=== PATIENT | male | born 1960 ===

== ENCOUNTER 2022-05-13 09:39 | Inpatient (IN) | payer OTHER ==
[2022-05-13 12:20] LABS: Basophils # (Auto) 0.1 K/mm3 (0.0-0.1); Eosinophils # (Auto) 0.1 K/mm3 (0.0-0.4); Eosinophils % (Auto) 1.4 % (0.0-4.3); Hematocrit 41.1 % (35.5-45.6); Hemoglobin 13.5 gm/dl (11.8-15.2); Lymphocytes # (Auto) 1.7 K/mm3 (1.2-5.4); Lymphocytes % (Auto) 29.7 % (13.4-35.0); Mean Corpuscular HGB Conc 33 % (32-34); Mean Corpuscular Volume 90 fl (84-94); Monocytes # (Auto) 0.3 K/mm3 (0.0-0.8); Monocytes % (Auto) 4.6 % (0.0-7.3); Platelet Count 263 K/mm3 (140-440); Red Blood Count 4.58 M/mm3 (3.65-5.03); Red Cell Distribution Width 14.6 % (13.2-15.2)
[2022-05-13 12:44] LABS: Alanine Aminotransferase 30 units/L (7-56); Albumin 2.6 g/dL (3.9-5); BUN/Creatinine Ratio 14; Blood Urea Nitrogen 36 mg/dL (9-20); Calcium 8.4 mg/dL (8.4-10.2); Hemolysis Index 28
--- NOTE | 2022-05-14 09:38 | Electrocardiograph Report ---
[facility] Test Date: 2022-05-13 Test Time: 10:37:08 Pat Name: MERI EDWARDS Department: Room: Gender: M Emt/Dispatcher: CLAUDINE : 1960 Requested By: ED DOC Order Number: [id number] Reading MD: Rah Hernandez Measurements Intervals [place] Rate: 80 P: 56 [place]: 147 QRS: 29 QRSD: 69 T: 39 QT: 371 QTc: 428 Interpretive Statements Sinus rhythm Low voltage, extremity leads No previous ECG available for comparison Electronically Signed On 05-14-2022 9:38:32 EDT by Rah Hernandez
--- NOTE | 2022-05-14 10:52 | Emergency Department Report ---
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 At times patient endorsed feeling short of breath but patient currently denies any. Patient denies any other symptoms. Patient denies fever chill night sweat dizziness blurred vision lightheadedness headache tinnitus ear pain runny nose sore throat loss of taste loss smell chest pain palpitation short of breath cough abdominal pain nausea vomiting diarrhea constipation dysuria, myalgia, arthralgia, and heat or cold intolerance. Patient has been in the waiting area since yesterday 05/13 and was not seen until now on 05/14. Severity scale (0 -10): 0 - Related Data Allergies Allergy/AdvReac Type Severity Reaction Status Date / Time No Known Allergies Allergy Verified 05/13/22 10:39 ED Review of Systems ROS: Stated complaint: BODY SWOLLEN/PAIN IN LEGS Other details as noted in HPI Comment: All other systems reviewed and negative ED Past Medical Hx - Past Medical History Previous Medical History?: Yes Hx Diabetes: No (borderline) - Surgical History Past Surgical History?: No - Social History Smoking Status: Never Smoker ED Physical Exam - General Limitations: No Limitations General appearance: in no apparent distress - Head Head exam: Present: atraumatic, normocephalic, normal inspection - Eye Eye exam: Present: normal appearance, PERRL, EOMI Pupils: Present: normal accommodation - ENT ENT exam: Present: normal exam, mucous membranes moist - Neck Neck exam: Present: normal inspection, full ROM - Respiratory Respiratory exam: Present: normal lung sounds bilaterally - Cardiovascular Cardiovascular Exam: Present: regular rate, normal rhythm, normal heart sounds - GI/Abdominal GI/Abdominal exam: Present: soft - Extremities Exam Extremities exam: Present: normal inspection, full ROM, normal capillary refill - Back Exam Back exam: Present: normal inspection, full ROM - Neurological Exam Neurological exam: Present: alert, oriented X3, CN II-XII intact - Psychiatric Psychiatric exam: Present: normal affect, normal mood - Skin Skin exam: Present: warm, normal color ED Course Vital Signs 05/13/22 05/14/22 10:30 08:34 Temperature 98.9 F 97.7 F Pulse Rate 75 81 Respiratory 14 18 Rate Blood Pressure 133/98 Blood Pressure 169/99 [Right] O2 Sat by Pulse 98 98 Oximetry - Reevaluation(s) Reevaluation #1: 05/14/22 12:19 Patient case discussed with Dr. Ruggiero who kindly accepted the patient. ED Medical Decision Making - Lab Data Result diagrams: 05/13/22 11:51 05/14/22 11:17 Critical care attestation.: If time is entered above; I have spent that time in minutes in the direct care of this critically ill patient, excluding procedure time. ED Disposition Clinical Impression: Pulmonary nodule, right, Small pleural effusion, CHF (congestive heart failure), Anasarca, ANNA (acute kidney injury) Disposition: ADMITTED INPATIENT Is pt being admited?: No Does the pt Need Aspirin: No Condition: Stable Referrals: PRIMARY CARE, [Primary Care Provider] - 3-5 Days Time of Disposition: 12:21
--- NOTE | 2022-05-14 10:57 | XRay Report ---
CHEST 2 VIEWS INDICATION / CLINICAL INFORMATION: bnp high. COMPARISON: None available. FINDINGS: SUPPORT DEVICES: None. HEART / MEDIASTINUM: No significant abnormality. LUNGS / PLEURA: Small bilateral effusions. There is a nodular density projecting overlying the right lung just beneath the minor fissure measuring 1.1 cm No pneumothorax. ADDITIONAL FINDINGS: No significant additional findings. IMPRESSION: 1. Right lung nodule measures 1.1 cm. Follow-up CT chest is recommended. 2. Small effusions Signer Name: Ulises Field MD Signed: 05/14/2022 10:53 AM Workstation Name: [id number]
[2022-05-14 11:54] LABS: Albumin 2.5 g/dL (3.9-5); Calcium 8.5 mg/dL (8.4-10.2)
[2022-05-14] MEDS ORDERED: FUROSEMIDE 40 MG/4 ML INJ IV ONE (12:15)
[2022-05-14] MEDS ORDERED: ONDANSETRON 4 MG/2 ML INJ IV PRN (16:47)
[2022-05-14] MEDS ORDERED: ACETAMINOPHEN 325 MG TAB PO PRN (16:47)
[2022-05-14] MEDS ORDERED: MORPHINE 2 MG/1 ML INJ IV PRN (16:54)
[2022-05-14] MEDS ORDERED: oxyCODONE /ACETAMINOPHEN 5-325MG TAB PO PRN (16:54)
[2022-05-14] MEDS ORDERED: SPIRONOLACTONE 25 MG TAB PO ONE (17:01)
--- NOTE | 2022-05-14 17:08 | History and Physical Report ---
History of Present Illness Date of examination: 05/14/22 Date of admission: 05/14/2022 Chief complaint: Swelling of both the legs and arms for 1 week History of present illness: 61-year-old male with no significant past medical history comes in for swelling of both the legs and shortness of breath on exertion. No fever or chills. No cough. No night sweats. No joint pains except for right knee swelling and right knee pain. - Past Medical History Previous Medical History?: Yes --Diabetes: No (borderline) - Surgical History Past Surgical History?: No -- - Social History --Smoking Status: Never Smoker Review of Systems ROS: Constitutional no weight loss or weight gain no fever or chills HEENT no sore throat no post nasal drip no diplopia Neck no neck stiffness no lymph gland enlargement Chest and lungs no shortness of breath cough or wheezing CVS shortness of breath on exertion GI no nausea no vomiting no diarrhea Genitourinary system no dysuria no flank pain Musculoskeletal system swelling of both the lower extremities 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 no seizures Skin no rash no itching Psychiatric no depression no homicidal or suicidal tendencies Hematologic no lymphedema or bruising Endocrine no polydipsia no polyuria no cold intolerance no heat intolerance Medications and Allergies Allergies Allergy/AdvReac Type Severity Reaction Status Date / Time No Known Allergies Allergy Verified 05/14/22 16:57 Exam - Constitutional Vitals: Temp Pulse Resp BP Pulse Ox 97.7 F 81 18 169/99 98 05/14/22 08:34 05/14/22 08:34 05/14/22 08:34 05/14/22 08:34 05/14/22 08:34 General appearance: Present: mild distress, well-nourished - EENT Eyes: Present: PERRL ENT: hearing intact, clear oral mucosa - Neck Neck: Present: supple, normal ROM - Respiratory Respiratory effort: normal Respiratory: bilateral: CTA - Cardiovascular Heart rate: 78 Rhythm: regular Heart Sounds: Present: S1 & S2. Absent: rub, click - Extremities Extremities: pulses symmetrical, No edema Peripheral Pulses: within normal limits - Abdominal General gastrointestinal: Present: soft, non-tender, non-distended, normal bowel sounds Male genitourinary: Present: normal - Rectal Rectal Exam: deferred - Integumentary Integumentary: Present: clear, warm, dry - Musculoskeletal Musculoskeletal: gait normal, strength equal bilaterally - Psychiatric Psychiatric: appropriate mood/affect, intact judgment & insight - Neurologic Neurologic: CNII-XII intact, moves all extremities HEART Score - HEART Score History: Slightly suspicious Age: 45-65 Risk factors: 1-2 risk factors Troponin: Troponin T < 0.010 ng/mL (0.00-0.029) 05/14/22 11:17 Troponin: < normal limit - Critical Actions Critical Actions: 0-3 pts:0.9-1.7%risk of adverse cardiac event.Candidate for discharge Results - Labs CBC & Chem 7: 05/13/22 11:51 05/14/22 11:17 Labs: Laboratory Last Values WBC 5.8 K/mm3 (4.5-11.0) 05/13/22 11:51 RBC 4.58 M/mm3 (3.65-5.03) 05/13/22 11:51 Hgb 13.5 gm/dl (11.8-15.2) 05/13/22 11:51 Hct 41.1 % (35.5-45.6) 05/13/22 11:51 MCV 90 fl (84-94) 05/13/22 11:51 MCH 30 pg (28-32) 05/13/22 11:51 MCHC 33 % (32-34) 05/13/22 11:51 RDW 14.6 % (13.2-15.2) 05/13/22 11:51 Plt Count 263 K/mm3 (140-440) 05/13/22 11:51 Lymph % (Auto) 29.7 % (13.4-35.0) 05/13/22 11:51 [place] % (Auto) 4.6 % (0.0-7.3) 05/13/22 11:51 Eos % (Auto) 1.4 % (0.0-4.3) 05/13/22 11:51 Baso % (Auto) 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4 mg/dL (0.8-1.3) H 05/14/22 11:17 Estimated GFR 28 ml/min 05/14/22 11:17 BUN/Creatinine Ratio 14 % 05/14/22 11:17 Glucose 218 mg/dL (75-100) H 05/14/22 11:17 Calcium 8.5 mg/dL (8.4-10.2) 05/14/22 11:17 Magnesium 1.90 mg/dL (1.7-2.3) 05/14/22 11:17 Total Bilirubin 0.20 mg/dL (0.1-1.2) 05/14/22 11:17 AST 25 units/L (5-40) 05/14/22 11:17 ALT 24 units/L (7-56) 05/14/22 11:17 Alkaline Phosphatase 157 units/L (35-129) H 05/14/22 11:17 Troponin T < 0.010 ng/mL (0.00-0.029) 05/14/22 11:17 NT-Pro-B Natriuret Pep 3772 pg/mL (0-900) H 05/14/22 11:17 Total Protein 5.6 g/dL (6.3-8.2) L 05/14/22 11:17 Albumin 2.5 g/dL (3.9-5) L 05/14/22 11:17 Albumin/Globulin Ratio 0.8 % 05/14/22 11:17 BMP 05/14/22 11:17 Sodium 140 Potassium 5.5 H Chloride 109.5 H Carbon Dioxide 23 BUN 34 H Creatinine 2.4 H Glucose 218 H Calcium 8.5 Cardiac Enzymes 05/14/22 Range/Units 11:17 Troponin T < 0.010 (0.00-0.029) ng/mL Liver Function 05/14/22 Range/Units 11:17 Total Bilirubin 0.20 (0.1-1.2) mg/dL AST 25 (5-40) units/L ALT 24 (7-56) units/L Alkaline Phosphatase 157 H (35-129) units/L Albumin 2.5 L (3.9-5) g/dL - Imaging and Cardiology EKG: report reviewed (Sinus rhythm no acute ST-T wave changes) Chest x-ray: report reviewed Imaging and Cardiology: Chest x-ray Right lung nodule measures 1.1 cm Follow-up CT chest since recommended Small effusion Assessment and Plan Advance Directives: Yes (Full code) VTE prophylaxis?: Chemical Plan of care discussed with patient/family: Yes - Patient Problems (1) Acute exacerbation of CHF (congestive heart failure) Current Visit: Yes Status: Acute Qualifiers: Heart failure type: unspecified Qualified Code(s): I50.9 - Heart failure, unspecified Plan to address problem: Echocardiogram for ejection fraction and wall motion and valve function I's and O's Daily weights BNP is high 3655 (2) Hyperkalemia Current Visit: Yes Status: Acute Plan to address problem: Treated with Kayexalate and calcium gluconate and bicarbonate (3) ANNA (acute kidney injury) Current Visit: Yes Status: Acute Plan to address problem: Vasomotor nephropathy Possible underlying CKD Nephrology consult Patient on Lasix which may exacerbate volume depletion (4) T2DM (type 2 diabetes mellitus) Current Visit: Yes Status: Chronic 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 Patient acknowledged understanding with care plan. +30 minutes.
[2022-05-14] MEDS: HEPARIN 5,000 UNIT/1 ML VIAL SUB-Q SCH (22:21)
[2022-05-14] MEDS: FUROSEMIDE 40 MG/4 ML INJ IV SCH (22:21)
[2022-05-14] MEDS: carvediloL 12.5 MG TAB PO SCH (22:21)
[2022-05-14] MEDS: FAMOTIDINE 20 MG TAB PO SCH (22:22)
[2022-05-15] MEDS: hydrALAZINE 20 MG/1 ML INJ IV PRN (04:33)
[2022-05-15] MEDS: FUROSEMIDE 40 MG/4 ML INJ IV SCH ×2 (06:14→17:33)
[2022-05-15 08:16] LABS: Basophils % (Auto) 0.2 % (0.0-1.8); Eosinophils # (Auto) 0.2 K/mm3 (0.0-0.4); Eosinophils % (Auto) 2.7 % (0.0-4.3); Hematocrit 39.4 % (35.5-45.6); Lymphocytes # (Auto) 1.7 K/mm3 (1.2-5.4); Lymphocytes % (Auto) 30.2 % (13.4-35.0); Mean Corpuscular HGB Conc 33 % (32-34); Mean Corpuscular Volume 89 fl (84-94); Monocytes # (Auto) 0.3 K/mm3 (0.0-0.8); Monocytes % (Auto) 4.5 % (0.0-7.3); Platelet Count 281 K/mm3 (140-440); Red Blood Count 4.43 M/mm3 (3.65-5.03); Red Cell Distribution Width 14.5 % (13.2-15.2)
[2022-05-15 08:49] LABS: Alanine Aminotransferase 20 units/L (7-56); BUN/Creatinine Ratio 15; Blood Urea Nitrogen 34 mg/dL (9-20); Calcium 8.1 mg/dL (8.4-10.2); Hemolysis Index 23
--- NOTE | 2022-05-15 09:06 | Electrocardiograph Report ---
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
[2022-05-15] MEDS: carvediloL 12.5 MG TAB PO SCH ×2 (11:10→21:46)
[2022-05-15] MEDS: FAMOTIDINE 20 MG TAB PO SCH (11:10)
[2022-05-15] MEDS: HEPARIN 5,000 UNIT/1 ML VIAL SUB-Q SCH ×2 (11:11→21:47)
--- NOTE | 2022-05-15 13:52 | Consultation ---
History of Present Illness Consult reason: congestive heart failure History of present illness: Patient 61-year-old male who reports no past medical history who came to the ED with a complaint of swelling on his lower extremities x4 months. Patient states he has had this swelling for several months however he was unable to clarify why he decided to come to the ED. Patient reports that he does not follow with any doctors. In the ED patient was found to have elevated creatinine and elevated BNP. CXR showed small pleural effusions and pulmonary nodule. At time of interview patient denies chest pain, shortness of breath, orthopnea or dyspnea on exertion. Patient is previously known to our practice. Cardiology is consulted for CHF Past History Past Medical History: No medical history Past Surgical History: No surgical history Social history: no significant social history Family history: no significant family history Medications and Allergies Allergies Allergy/AdvReac Type Severity Reaction Status Date / Time No Known Allergies Allergy Verified 05/14/22 16:57 Active Meds: Active Medications Acetaminophen (Acetaminophen 325 Mg Tab) 650 mg PO Q4H PRN PRN Reason: Pain MILD(1-3)/Fever >100.5/KEARNS Carvedilol (Carvedilol 12.5 Mg Tab) 12.5 mg PO BID [facility] Last Admin: 05/15/22 11:10 Dose: 12.5 mg Famotidine (Famotidine 10 Mg Tab) 10 mg PO BID [facility] Furosemide (Furosemide 40 Mg/4 Ml Inj) 40 mg IV 0600,1800 [facility] Last Admin: 05/15/22 06:14 Dose: 40 mg Heparin Sodium (Porcine) (Heparin 5,000 Unit/1 Ml Vial) 5,000 unit SUB-Q Q12HR [facility] Last Admin: 05/15/22 11:11 Dose: 5,000 unit Hydralazine HCl (Hydralazine 20 Mg/1 Ml Inj) 10 mg IV Q4H PRN PRN Reason: Blood Pressure Last Admin: 05/15/22 04:33 Dose: 10 mg Morphine Sulfate (Morphine 2 Mg/1 Ml Inj) 2 mg IV Q4H PRN PRN Reason: Pain, Moderate (4-6) Ondansetron HCl (Ondansetron 4 Mg/2 Ml Inj) 4 mg IV Q8H PRN PRN Reason: Nausea And Vomiting Oxycodone/Acetaminophen (Oxycodone /Acetaminophen 5-325mg Tab) 1 tab PO Q6H PRN PRN Reason: Pain, Moderate (4-6) Sodium Chloride (Sodium Chloride 0.9% 10 Ml Flush Syringe) 10 ml IV BID [facility] Last Admin: 05/15/22 11:11 Dose: 10 ml Sodium Chloride (Sodium Chloride 0.9% 10 Ml Flush Syringe) 10 ml IV PRN PRN PRN Reason: LINE FLUSH Review of Systems Constitutional: no weight loss, no weight gain Ears, nose, mouth and throat: no sinus pressure, no sinus pain Cardiovascular: edema, no chest pain, no orthopnea, no shortness of breath, no dyspnea on exertion Respiratory: no hemoptysis, no dyspnea on exertion Gastrointestinal: no abdominal pain, no nausea, no vomiting Musculoskeletal: no neck stiffness, no neck pain Integumentary: no rash, no pruritis, no redness Neurological: no head injury, no transient paralysis Psychiatric: no anxiety, no memory loss Endocrine: no cold intolerance, no heat intolerance Physical Examination Vital Signs Temp Pulse Resp BP Pulse Ox 98.9 F 75 14 133/98 98 05/13/22 10:30 05/13/22 10:30 05/13/22 10:30 05/13/22 10:30 05/13/22 10:30 General appearance: no acute distress HEENT: Positive: PERRL Neck: Positive: trachea midline Cardiac: Positive: Reg Rate and Rhythm Lungs: Positive: Normal Breath Sounds Neuro: Positive: Grossly Intact Abdomen: Positive: Soft Skin: Negative: Rash, Suspicious Lesions, Ulceration Extremities: Present: upper extr. pulses, edema (L>R) Results 05/15/22 05:11 05/15/22 05:11 Cardiac Enzymes 05/15/22 Range/Units 05:11 AST 22 (5-40) units/L CBC 05/15/22 Range/Units 05:11 WBC 5.6 (4.5-11.0) K/mm3 RBC 4.43 (3.65-5.03) M/mm3 Hgb 13.0 (11.8-15.2) gm/dl Hct 39.4 (35.5-45.6) % Plt Count 281 (140-440) K/mm3 Lymph # (Auto) 1.7 (1.2-5.4) K/mm3 [place] # (Auto) 0.3 (0.0-0.8) K/mm3 Eos # (Auto) 0.2 (0.0-0.4) K/mm3 Baso # (Auto) 0.0 (0.0-0.1) K/mm3 Comprehensive Metabolic Panel 05/15/22 Range/Units 05:11 Sodium 139 (137-145) mmol/L Potassium 4.3 D (3.6-5.0) mmol/L Chloride 113.2 H (98-107) mmol/L Carbon Dioxide 18 L (22-30) mmol/L BUN 34 H (9-20) mg/dL Creatinine 2.3 H (0.8-1.3) mg/dL Glucose 156 H (75-100) mg/dL Calcium 8.1 L (8.4-10.2) mg/dL AST 22 (5-40) units/L ALT 20 (7-56) units/L Alkaline Phosphatase 147 H (35-129) units/L Total Protein 4.8 L (6.3-8.2) g/dL Albumin 2.0 L (3.9-5) g/dL - Imaging and Cardiology Echo: pending EKG interpretations - Telemetry EKG Rhythm: Sinus Rhythm - EKG Sinus rhythms and dysrhythmias: sinus rhythm Assessment and Plan Patient 61-year-old male who reports no past medical history who came to the ED with a complaint of swelling on his lower extremities x4 months. Acute CHF ANNA-nephrology following Hypertension Diabetes Hyperkalemia Pulmonary nodule Plan: EKG shows sinus rhythm 70 with no acute ischemic changes. Troponins negative x3. Patient denies any complaint of chest pain. AMI ruled out BNP noted to be elevated and patient does have bilateral lower extremity edema. Agree with Lasix for diuresis if okay with nephrology due to patient renal function Strict I&O's, daily weights, repeat BMP in a.m. No KARMA or ARB due to renal function Patient currently on carvedilol 12.5 mg p.o. twice daily Echo pending Per CXR primary team may wish to consider CT chest for pulmonary nodule Patient seen in conjunction with Dr. Hernandez who agrees with this plan of care - Patient Problems (1) Pulmonary nodule, right Current Visit: Yes Status: Acute (2) Small pleural effusion Current Visit: Yes Status: Acute (3) CHF (congestive heart failure) Current Visit: Yes Status: Acute (4) ANNA (acute kidney injury) Current Visit: Yes Status: Acute (5) Acute exacerbation of CHF (congestive heart failure) Current Visit: Yes Status: Acute Qualifiers: Heart failure type: unspecified Qualified Code(s): I50.9 - Heart failure, unspecified (6) Hyperkalemia Current Visit: Yes Status: Acute (7) ANNA (acute kidney injury) Current Visit: Yes Status: Acute (8) T2DM (type 2 diabetes mellitus) Current Visit: Yes Status: Chronic Qualifiers: Diabetes 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
--- NOTE | 2022-05-15 15:14 | Consultation ---
History of Present Illness - Reason for Consult Consult date: 05/15/22 acute renal failure - History of Present Illness RFC: ANNA, Unknown CKD HPI: 61 year old M admitted with leg edema and SHOB. He denies fever, chills, cough or night sweats. His Cr is high. His CXR is clear. ROS: As in HPI otherwise 12 point review of systems -ve - Past Medical History Previous Medical History?: Yes --Diabetes: No (borderline) - Surgical History Past Surgical History?: No -- - Social History --Smoking Status: Never Smoker Past History Past Medical History: No medical history Past Surgical History: No surgical history Social history: no significant social history Family history: no significant family history Medications and Allergies Allergies Allergy/AdvReac Type Severity Reaction Status Date / Time No Known Allergies Allergy Verified 05/14/22 16:57 Active Meds: Active Medications Acetaminophen (Acetaminophen 325 Mg Tab) 650 mg PO Q4H PRN PRN Reason: Pain MILD(1-3)/Fever >100.5/KEARNS Carvedilol (Carvedilol 12.5 Mg Tab) 12.5 mg PO BID [facility] Last Admin: 05/15/22 11:10 Dose: 12.5 mg Famotidine (Famotidine 10 Mg Tab) 10 mg PO BID [facility] Furosemide (Furosemide 40 Mg/4 Ml Inj) 40 mg IV 0600,1800 [facility] Last Admin: 05/15/22 06:14 Dose: 40 mg Heparin Sodium (Porcine) (Heparin 5,000 Unit/1 Ml Vial) 5,000 unit SUB-Q Q12HR [facility] Last Admin: 05/15/22 11:11 Dose: 5,000 unit Hydralazine HCl (Hydralazine 20 Mg/1 Ml Inj) 10 mg IV Q4H PRN PRN Reason: Blood Pressure Last Admin: 05/15/22 04:33 Dose: 10 mg Morphine Sulfate (Morphine 2 Mg/1 Ml Inj) 2 mg IV Q4H PRN PRN Reason: Pain, Moderate (4-6) Ondansetron HCl (Ondansetron 4 Mg/2 Ml Inj) 4 mg IV Q8H PRN PRN Reason: Nausea And Vomiting Oxycodone/Acetaminophen (Oxycodone /Acetaminophen 5-325mg Tab) 1 tab PO Q6H PRN PRN Reason: Pain, Moderate (4-6) Sodium Chloride (Sodium Chloride 0.9% 10 Ml Flush Syringe) 10 ml IV BID [facility] Last Admin: 05/15/22 11:11 Dose: 10 ml Sodium Chloride (Sodium Chloride 0.9% 10 Ml Flush Syringe) 10 ml IV PRN PRN PRN Reason: LINE FLUSH Exam - Vital Signs Vital signs: Vital Signs Temp Pulse Resp BP Pulse Ox 98.9 F 75 14 133/98 98 05/13/22 10:30 05/13/22 10:30 05/13/22 10:30 05/13/22 10:30 05/13/22 10:30 - Physical Exam Narrative exam: General appearance: Present: mild distress, well-nourished - EENT Eyes: Present: PERRL ENT: hearing intact, clear oral mucosa - Neck Neck: Present: supple, normal ROM - Respiratory Respiratory effort: normal Respiratory: bilateral: CTA - Cardiovascular Heart rate: 78 Rhythm: regular Heart Sounds: Present: S1 & S2. Absent: rub, click - Extremities Extremities: pulses symmetrical, No edema Peripheral Pulses: within normal limits - Abdominal General gastrointestinal: Present: soft, non-tender, non-distended, normal bowel sounds Male genitourinary: Present: normal - Rectal Rectal Exam: deferred - Integumentary Integumentary: Present: clear, warm, dry - Musculoskeletal Musculoskeletal: gait normal, strength equal bilaterally - Psychiatric Psychiatric: appropriate mood/affect, intact judgment & insight - Neurologic Neurologic: CNII-XII intact, moves all extremities Results - Lab Results 05/15/22 05:11 05/15/22 05:11 Most recent lab results Calcium 8.1 mg/dL (8.4-10.2) L 05/15/22 05:11 Magnesium 1.90 mg/dL (1.7-2.3) 05/14/22 11:17 Assessment and Plan Acute Kidney injury, Possible CKD Metabolic acidosis Hyperkalemia Acute CHF exacerbation DM2 HTN -May have CKD -Check Urine studies, CK level -Check Renal US -Low K diet -Start bicarb tabs for acidosis -On lasix for CHF, CXR looks clear, can f/u TTE -Keep Nephrotic syndrome in mind, check for proteinuria Dashawn Gaspar MD [phone]
[2022-05-15 19:51] LABS: Bilirubin,Urine Negative (Negative); Blood,Urine 1+ (Negative); Color,Urine Yellow (Yellow)
[2022-05-15 19:52] LABS: Protein,Urine 300 mg/dL mg/dL (Negative)
[2022-05-15 20:31] LABS: Creatinine,Urine 36.2 mg/dL (0.1-20.0)
[2022-05-15 20:42] LABS: Protein/Creatinine Ratio,Urine 14.09
[2022-05-15] MEDS: SODIUM BICARBONATE 650 MG TAB PO SCH (21:47)
[2022-05-15] MEDS: FAMOTIDINE 10 MG TAB PO SCH (21:47)
[2022-05-16 04:56] LABS: Calcium 7.7 mg/dL (8.4-10.2); Chol/HDL Ratio 3.08 %
[2022-05-16] MEDS: FUROSEMIDE 40 MG/4 ML INJ IV SCH ×2 (06:07→18:10)
--- NOTE | 2022-05-16 08:41 | Progress Note ---
Assessment and Plan - Patient Problems (1) Acute exacerbation of CHF (congestive heart failure) Current Visit: Yes Status: Acute Qualifiers: Heart failure type: unspecified Qualified Code(s): I50.9 - Heart failure, unspecified Plan to address problem: Echocardiogram showed ejection fraction of 50 to 55% Decreased left ventricular systolic function Daily intake output and daily weights Cardiology consult appreciated (2) Hyperkalemia Current Visit: Yes Status: Acute Plan to address problem: Corrected (3) ANNA (acute kidney injury) Current Visit: Yes Status: Acute Plan to address problem: Vasomotor nephropathy Possible underlying CKD Nephrology consult Patient on Lasix which may exacerbate volume depletion (4) T2DM (type 2 diabetes mellitus) Current Visit: Yes Status: Chronic Qualifiers: 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 Patient acknowledged understanding with care plan. +30 minutes. Subjective Date of service: 05/15/22 Principal diagnosis: ANNA, CHF Interval history: History of present illness: 61-year-old male with no significant past medical history comes in for swelling of both the legs and shortness of breath on exertion. No fever or chills. No cough. No night sweats. No joint pains except for right knee swelling and right knee pain. 05/15/2022 Shortness of breath is better Pedal edema is better Creatinine slightly improved creatinine improved from 36/2.5-34/2.3 Echocardiogram showed ejection fraction of 50 to 55% Objective - Constitutional Vitals: Vital Signs - 12hr 05/15/22 05/16/22 05/16/22 22:00 00:03 03:12 Temperature 98.4 F 98.1 F Pulse Rate 75 72 Respiratory 16 16 Rate Blood Pressure 151/78 146/77 O2 Sat by Pulse 97 98 99 Oximetry General appearance: Present: no acute distress, well-nourished - EENT Eyes: PERRL, EOM intact ENT: hearing intact, clear oral mucosa Ears: bilateral: normal - Neck Neck: supple, normal ROM - Respiratory Respiratory effort: normal Respiratory: bilateral: CTA - Breasts Breasts: normal - Cardiovascular Heart rate: 78 Rhythm: regular Heart Sounds: Present: S1 & S2. Absent: gallop, rub Extremities: pulses intact, No edema, normal color, Full ROM - Gastrointestinal General gastrointestinal: Present: soft, non-tender, non-distended, normal bowel sounds - Genitourinary Male genitourinary: normal - Integumentary Integumentary: clear, warm, dry - Musculoskeletal Musculoskeletal: 1, strength equal bilaterally - Neurologic Neurologic: moves all extremities - Psychiatric Psychiatric: memory intact, appropriate mood/affect, intact judgment & insight - Labs CBC & Chem 7: 05/15/22 05:11 05/19/22 09:22 Labs: Abnormal lab results 05/15/22 05/15/22 05/15/22 Range/Units 05:11 15:57 18:41 Chloride 113.2 H (98-107) mmol/L Carbon Dioxide 18 L (22-30) mmol/L BUN 34 H (9-20) mg/dL Creatinine 2.3 H (0.8-1.3) mg/dL Glucose 156 H (75-100) mg/dL POC Glucose (70-105) mg/dL Calcium 8.1 L (8.4-10.2) mg/dL Alkaline Phosphatase 147 H (35-129) units/L Total Creatine Kinase 176 H (55-170) units/L Total Protein 4.8 L (6.3-8.2) g/dL Albumin 2.0 L (3.9-5) g/dL Triglycerides (2-149) mg/dL Cholesterol (50-199) mg/dL LDL Cholesterol Direct (50-130) mg/dL HDL Cholesterol (40-59) mg/dL Urine WBC (Auto) 30.0 H (0.0-6.0) /HPF Urine Creatinine (0.1-20.0) mg/dL Urine Total Protein (5-11.8) mg/dL 05/15/22 05/15/22 05/16/22 Range/Units 18:41 22:00 03:56 Chloride 110.8 H (98-107) mmol/L Carbon Dioxide 21 L (22-30) mmol/L BUN 37 H (9-20) mg/dL Creatinine 2.6 H (0.8-1.3) mg/dL Glucose 231 H (75-100) mg/dL POC Glucose 190 H (70-105) mg/dL Calcium 7.7 L (8.4-10.2) mg/dL Alkaline Phosphatase (35-129) units/L Total Creatine Kinase (55-170) units/L Total Protein (6.3-8.2) g/dL Albumin (3.9-5) g/dL Triglycerides 175 H (2-149) mg/dL Cholesterol 228 H (50-199) mg/dL LDL Cholesterol Direct 138 H (50-130) mg/dL HDL Cholesterol 74 H (40-59) mg/dL Urine WBC (Auto) (0.0-6.0) /HPF Urine Creatinine 36.2 H (0.1-20.0) mg/dL Urine Total Protein 510 H (5-11.8) mg/dL HEART Score - HEART Score Age: 45-65 Risk factors: 1-2 risk factors Troponin: Troponin T < 0.010 ng/mL (0.00-0.029) 05/14/22 11:17 Troponin: < normal limit - Critical Actions Critical Actions: 0-3 pts:0.9-1.7%risk of adverse cardiac event.Candidate for discharge
[2022-05-16] MEDS ORDERED: carvediloL 12.5 MG TAB PO SCH (10:49)
--- NOTE | 2022-05-16 11:09 | Ultrasound Report ---
ULTRASOUND RENAL INDICATION / CLINICAL INFORMATION: ana. COMPARISON: None available. FINDINGS: RIGHT KIDNEY: Length = 10.2 cm. - Echogenicity: Mildly echogenic. - Parenchymal Thickness: Normal. - Hydronephrosis: None. - Cyst / Mass: None. - Stones: None seen. LEFT KIDNEY: Length = 10.4 cm. - Echogenicity: Mildly echogenic. - Parenchymal Thickness: Normal. - Hydronephrosis: None. - Cyst / Mass: None. - Stones: None seen. URINARY BLADDER: Distended. No significant abnormality. FREE FLUID: Trace perinephric fluid bilaterally. ADDITIONAL FINDINGS: Bilateral pleural effusions, right greater than left. Diffusely echogenic appear ance of the liver, most commonly seen with steatosis. IMPRESSION: 1. No acute sonographic abnormality. 2. Findings suggestive of medical renal disease with trace perinephric fluid noted bilaterally. 3. Incidental findings, as described above. Scribed by: Peri Segal RDMS, LAUREL, SHERI Scribed: 05/16/2022 9:24 AM I have reviewed the images, agree with this report, and edited this report as needed. Signer Name: Rob Duran MD Signed: 05/16/2022 11:04 AM Workstation Name: [email or web address]
--- NOTE | 2022-05-16 12:21 | Progress Note ---
Assessment and Plan Patient 61-year-old male who reports no past medical history who came to the ED with a complaint of swelling on his lower extremities x4 months. Acute CHF ANNA-nephrology following Hypertension Diabetes Hyperkalemia Pulmonary nodule Echo 05/14/2022-EF 50 to 55%. Mild diastolic dysfunction is present impaired relaxation pattern. Right ventricular systolic function is normal. No pericardial effusion Plan: Patient reports good urine output and lower extremity edema has improved Patient has normal echo suspect lower extremity edema related to renal function Patient creatinine noted to increase. Will defer to nephrology for volume management Strict I&O's, daily weights, repeat BMP in a.m. No KARMA or ARB due to renal function Patient is hypertensive will increase to carvedilol 25 mg p.o. twice daily Will initiate atorvastatin 40 mg p.o. daily nightly due to high cholesterol Per CXR primary team may wish to consider CT chest for pulmonary nodule Patient seen in conjunction with Dr. Hernandez who agrees with this plan of care - Patient Problems (1) Pulmonary nodule, right Current Visit: Yes Status: Acute (2) Small pleural effusion Current Visit: Yes Status: Acute (3) CHF (congestive heart failure) Current Visit: Yes Status: Acute (4) ANNA (acute kidney injury) Current Visit: Yes Status: Acute (5) Acute exacerbation of CHF (congestive heart failure) Current Visit: Yes Status: Acute Qualifiers: Heart failure type: unspecified Qualified Code(s): I50.9 - Heart failure, unspecified (6) Hyperkalemia Current Visit: Yes Status: Acute (7) ANNA (acute kidney injury) Current Visit: Yes Status: Acute (8) T2DM (type 2 diabetes mellitus) Current Visit: Yes Status: Chronic Qualifiers: 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 Subjective Date of service: 05/16/22 Principal diagnosis: Volume overload Interval history: Patient resting in bed in no acute distress Sinus 70s on monitor with no events Objective Vital Signs Temp Pulse Resp BP Pulse Ox 05/16/22 10:00 98 05/16/22 03:12 98.1 F 72 16 146/77 99 05/16/22 00:03 98.4 F 75 16 151/78 98 05/15/22 22:00 97 05/15/22 20:34 98.1 F 65 16 174/90 99 05/15/22 15:10 98.4 F 66 18 175/92 98 05/15/22 14:00 72 97 - Physical Examination General: No Apparent Distress HEENT: Positive: PERRL Neck: Positive: trachea midline Cardiac: Positive: Reg Rate and Rhythm Lungs: Positive: Normal Breath Sounds Neuro: Positive: Grossly Intact Abdomen: Positive: Soft Skin: Negative: Rash, Suspicious Lesions, Ulceration Extremities: Present: upper extr. pulses, edema (L>R) - Labs and Meds Lipids 05/16/22 Range/Units 03:56 Triglycerides 175 H (2-149) mg/dL Cholesterol 228 H (50-199) mg/dL HDL Cholesterol 74 H (40-59) mg/dL Cholesterol/HDL Ratio 3.08 % Comprehensive Metabolic Panel 05/16/22 Range/Units 03:56 Sodium 140 (137-145) mmol/L Potassium 4.1 (3.6-5.0) mmol/L Chloride 110.8 H (98-107) mmol/L Carbon Dioxide 21 L (22-30) mmol/L BUN 37 H (9-20) mg/dL Creatinine 2.6 H (0.8-1.3) mg/dL Glucose 231 H (75-100) mg/dL Calcium 7.7 L (8.4-10.2) mg/dL - Imaging and Cardiology EKG: report reviewed (Sinus rhythm no acute ST-T wave changes) Echo: report reviewed - Telemetry EKG Rhythm: Sinus Rhythm - EKG Sinus rhythms and dysrhythmias: sinus rhythm
[2022-05-16] MEDS: SODIUM BICARBONATE 650 MG TAB PO SCH ×3 (12:37→20:00)
[2022-05-16] MEDS: HEPARIN 5,000 UNIT/1 ML VIAL SUB-Q SCH ×2 (12:37→22:25)
[2022-05-16] MEDS: FAMOTIDINE 10 MG TAB PO SCH ×2 (12:37→22:24)
[2022-05-16] MEDS: carvediloL 25 MG TAB PO SCH ×2 (12:40→22:24)
[2022-05-16] MEDS: carvediloL 12.5 MG TAB PO SCH (12:40)
[2022-05-16 13:18] LABS: Hepatitis B Surface Antigen Non-Reactive (Negative); Hepatitis C Virus Antibody Non-Reactive (NonReactive)
--- NOTE | 2022-05-16 18:54 | Progress Note ---
Assessment and Plan Acute Kidney injury, Possible CKD Metabolic acidosis Hyperkalemia Acute CHF exacerbation DM2 HTN -May have CKD -Has nephrotic syndrome, check secondary nephrotic w/u. -Check Renal US -Low K diet -Started bicarb tabs for acidosis -On lasix for CHF, CXR looks clear, TTE -ve for CHF, dec lasix. Dashawn Gaspar MD [phone] Subjective Date of service: 05/16/22 Principal diagnosis: Volume overload Interval history: making urine. Objective - Exam Narrative Exam: General appearance: Present: mild distress, well-nourished - EENT Eyes: Present: PERRL ENT: hearing intact, clear oral mucosa - Neck Neck: Present: supple, normal ROM - Respiratory Respiratory effort: normal Respiratory: bilateral: CTA - Cardiovascular Heart rate: 78 Rhythm: regular Heart Sounds: Present: S1 & S2. Absent: rub, click - Extremities Extremities: pulses symmetrical, No edema Peripheral Pulses: within normal limits - Abdominal General gastrointestinal: Present: soft, non-tender, non-distended, normal bowel sounds Male genitourinary: Present: normal - Rectal Rectal Exam: deferred - Integumentary Integumentary: Present: clear, warm, dry - Musculoskeletal Musculoskeletal: gait normal, strength equal bilaterally - Psychiatric Psychiatric: appropriate mood/affect, intact judgment & insight - Neurologic Neurologic: CNII-XII intact, moves all extremities - Vital Signs Vital signs: Vital Signs - 12hr 05/16/22 05/16/22 05/16/22 08:02 10:00 12:12 Temperature 98.7 F 98.5 F Pulse Rate 62 63 Respiratory 18 18 Rate Blood Pressure 173/89 187/83 O2 Sat by Pulse 99 98 98 Oximetry 05/16/22 05/16/22 14:00 16:41 Temperature 98.5 F Pulse Rate 63 62 Respiratory 18 Rate Blood Pressure 177/99 O2 Sat by Pulse 99 Oximetry - Lab 05/15/22 05:11 05/16/22 03:56 Most recent lab results Calcium 7.7 mg/dL (8.4-10.2) L 05/16/22 03:56 Magnesium 1.90 mg/dL (1.7-2.3) 05/14/22 11:17 Urine Creatinine 36.2 mg/dL (0.1-20.0) H 05/15/22 18:41 Urine Sodium 104 mmol/L 05/15/22 18:41 Urine Total Protein 510 mg/dL (5-11.8) H 05/15/22 18:41 Medications & Allergies - Medications Allergies/Adverse Reactions: Allergies No Known Allergies Allergy (Verified 05/14/22 16:57) Home Medications: Home Medications Medication Instructions Recorded Confirmed Last Taken Type amLODIPine [Norvasc] 10 mg PO DAILY 05/15/22 05/15/22 Unknown History Active Medications: Generic Name Dose Route Start Last Admin Trade Name Freq PRN Reason Stop Dose Admin Acetaminophen 650 mg 05/14/22 16:47 Acetaminophen 325 Mg Tab PO Q4H PRN Pain MILD(1-3)/Fever >100.5/KEARNS Atorvastatin Calcium 40 mg 05/16/22 22:00 Atorvastatin 40 Mg Tab PO QHS REENA Carvedilol 25 mg 05/16/22 12:00 05/16/22 12:40 Carvedilol 25 Mg Tab PO 25 mg Q12HR REENA Administration Famotidine 10 mg 05/15/22 22:00 05/16/22 12:37 Famotidine 10 Mg Tab PO 10 mg BID REENA Administration Furosemide 20 mg 05/17/22 10:00 Furosemide 20 Mg Tab PO QDAY REENA Heparin Sodium (Porcine) 5,000 unit 05/14/22 22:00 05/16/22 12:37 Heparin 5,000 Unit/1 Ml Vial SUB-Q 5,000 unit Q12HR REENA Administration Hydralazine HCl 10 mg 05/15/22 04:15 05/15/22 04:33 Hydralazine 20 Mg/1 Ml Inj IV 10 mg Q4H PRN Administration Blood Pressure Morphine Sulfate 2 mg 05/14/22 16:54 Morphine 2 Mg/1 Ml Inj IV Q4H PRN Pain, Moderate (4-6) Ondansetron HCl 4 mg 05/14/22 16:47 Ondansetron 4 Mg/2 Ml Inj IV Q8H PRN Nausea And Vomiting Oxycodone/Acetaminophen 1 tab 05/14/22 16:54 Oxycodone /Acetaminophen 5-325mg Tab PO Q6H PRN Pain, Moderate (4-6) Sodium Bicarbonate 650 mg 05/15/22 20:00 05/16/22 15:01 Sodium Bicarbonate 650 Mg Tab PO 650 mg TID REENA Administration Sodium Chloride 10 ml 05/14/22 22:00 05/16/22 12:37 Sodium Chloride 0.9% 10 Ml Flush Syringe IV 10 ml BID REENA Administration Sodium Chloride 10 ml 05/14/22 16:47 Sodium Chloride 0.9% 10 Ml Flush Syringe IV PRN PRN LINE FLUSH
[2022-05-17 06:21] LABS: Calcium 7.5 mg/dL (8.4-10.2)
--- NOTE | 2022-05-17 09:42 | Progress Note ---
Assessment and Plan Acute Kidney injury, nephrotic syndrome, possible CKD Non Anion Gap Metabolic acidosis Hyperkalemia Acute CHF exacerbation DM2 HTN Plan: -Renal function reviewed, SCr level was 2.7 today, yesterday's SCr level was 2.6 -Pt may have underlying CKD -Calculated protein to cr ratio was 14 g, nephrotic range proteinuria, pt has nephrotic syndrome, check secondary GN work up -So far HIV, Hepatitis panel -> negative -Renal US suggestive of medical renal disease with trace perinephric fluid noted, no hydronephrosis -On sodium bicarbonate 650 mg po TID for acidosis -On lasix 20 mg po daily -Low K diet -Pt needs strict intake and output -Renal plan reviewed by Dr Gaspar Subjective Date of service: 05/17/22 Principal diagnosis: Volume overload Interval history: Pt seen sitting up on the side of the bed, awake, c/o headache, speaks limited Syrian, no acute distress. No family at bedside Objective - Vital Signs Vital signs: Vital Signs - 12hr 05/16/22 05/16/22 05/16/22 22:00 22:24 23:21 Temperature 97.8 F Pulse Rate 61 66 Respiratory 16 Rate Blood Pressure 160/87 155/77 O2 Sat by Pulse 98 98 Oximetry 05/17/22 04:08 Temperature 98.5 F Pulse Rate 67 Respiratory 15 Rate Blood Pressure 147/79 O2 Sat by Pulse 98 Oximetry - General Appearance General appearance: well-developed EENT: ATNC Neck: no JVD Respiratory: Present: Decreased Breath Sounds Cardiology: S1S2 Gastrointestinal: normoactive bowel sounds, no tenderness Integumentary: warm and dry Neurologic: other (awake, speaks limited Syrian) Musculoskeletal: other (1+ edema to BLE) - Lab 05/15/22 05:11 05/17/22 04:52 Most recent lab results Calcium 7.5 mg/dL (8.4-10.2) L 05/17/22 04:52 Magnesium 1.90 mg/dL (1.7-2.3) 05/14/22 11:17 Urine Creatinine 36.2 mg/dL (0.1-20.0) H 05/15/22 18:41 Urine Sodium 104 mmol/L 05/15/22 18:41 Urine Total Protein 510 mg/dL (5-11.8) H 05/15/22 18:41 Medications & Allergies - Medications Allergies/Adverse Reactions: Allergies No Known Allergies Allergy (Verified 05/14/22 16:57) Home Medications: Home Medications Medication Instructions Recorded Confirmed Last Taken Type amLODIPine [Norvasc] 10 mg PO DAILY 05/15/22 05/15/22 Unknown History Active Medications: Generic Name Dose Route Start Last Admin Trade Name Freq PRN Reason Stop Dose Admin Acetaminophen 650 mg 05/14/22 16:47 Acetaminophen 325 Mg Tab PO Q4H PRN Pain MILD(1-3)/Fever >100.5/KEARNS Atorvastatin Calcium 40 mg 05/16/22 22:00 05/16/22 22:24 Atorvastatin 40 Mg Tab PO 40 mg QHS REENA Administration Carvedilol 25 mg 05/16/22 12:00 05/16/22 22:24 Carvedilol 25 Mg Tab PO 25 mg Q12HR REENA Administration Famotidine 10 mg 05/15/22 22:00 05/16/22 22:24 Famotidine 10 Mg Tab PO 10 mg BID REENA Administration Furosemide 20 mg 05/17/22 10:00 Furosemide 20 Mg Tab PO QDAY REENA Heparin Sodium (Porcine) 5,000 unit 05/14/22 22:00 05/16/22 22:25 Heparin 5,000 Unit/1 Ml Vial SUB-Q 5,000 unit Q12HR REENA Administration Hydralazine HCl 10 mg 05/15/22 04:15 05/15/22 04:33 Hydralazine 20 Mg/1 Ml Inj IV 10 mg Q4H PRN Administration Blood Pressure Morphine Sulfate 2 mg 05/14/22 16:54 Morphine 2 Mg/1 Ml Inj IV Q4H PRN Pain, Moderate (4-6) Ondansetron HCl 4 mg 05/14/22 16:47 Ondansetron 4 Mg/2 Ml Inj IV Q8H PRN Nausea And Vomiting Oxycodone/Acetaminophen 1 tab 05/14/22 16:54 Oxycodone /Acetaminophen 5-325mg Tab PO Q6H PRN Pain, Moderate (4-6) Sodium Bicarbonate 650 mg 05/15/22 20:00 05/16/22 20:00 Sodium Bicarbonate 650 Mg Tab PO 650 mg TID REENA Administration Sodium Chloride 10 ml 05/14/22 22:00 05/16/22 22:00 Sodium Chloride 0.9% 10 Ml Flush Syringe IV 10 ml BID REENA Administration Sodium Chloride 10 ml 05/14/22 16:47 Sodium Chloride 0.9% 10 Ml Flush Syringe IV PRN PRN LINE FLUSH
--- NOTE | 2022-05-17 11:21 | Progress Note ---
Assessment and Plan Patient 61-year-old male who reports no past medical history who came to the ED with a complaint of swelling on his lower extremities x4 months. ANNA/neprhotic syndrome-nephrology following Hypertension Diabetes Hyperkalemia Pulmonary nodule Echo 05/14/2022-EF 50 to 55%. Mild diastolic dysfunction is present impaired relaxation pattern. Right ventricular systolic function is normal. No pericardial effusion Plan: Patient lower extremity edema has improved Patient has normal echo suspect lower extremity edema related to renal function/nephrotic syndrome Will defer to nephrology for volume management Continue carvedilol 25 mg p.o. twice daily and atorvastatin 40 mg p.o. daily nightly Cardiac status otherwise stable will see as needed Patient seen in conjunction with Dr. Hernandez who agrees with this plan of care - Patient Problems (1) Pulmonary nodule, right Current Visit: Yes Status: Acute (2) Small pleural effusion Current Visit: Yes Status: Acute (3) CHF (congestive heart failure) Current Visit: Yes Status: Acute (4) ANNA (acute kidney injury) Current Visit: Yes Status: Acute (5) Acute exacerbation of CHF (congestive heart failure) Current Visit: Yes Status: Acute Qualifiers: Heart failure type: unspecified Qualified Code(s): I50.9 - Heart failure, unspecified (6) Hyperkalemia Current Visit: Yes Status: Acute (7) ANNA (acute kidney injury) Current Visit: Yes Status: Acute (8) T2DM (type 2 diabetes mellitus) Current Visit: Yes Status: Chronic Qualifiers: 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 Subjective Date of service: 05/17/22 Principal diagnosis: Volume overload, nephrotic syndrome Interval history: Patient resting in bed in no acute distress Sinus 70s on monitor with no events Objective Vital Signs Temp Pulse Resp BP Pulse Ox 05/17/22 04:08 98.5 F 67 15 147/79 98 05/16/22 23:21 97.8 F 66 16 155/77 98 05/16/22 22:24 61 160/87 05/16/22 22:00 98 05/16/22 19:33 97.8 F 61 16 160/87 98 05/16/22 16:41 98.5 F 62 18 177/99 99 05/16/22 14:00 63 05/16/22 12:12 98.5 F 63 18 187/83 98 - Physical Examination General: No Apparent Distress HEENT: Positive: PERRL Neck: Positive: trachea midline Cardiac: Positive: Reg Rate and Rhythm Neuro: Positive: Grossly Intact Abdomen: Positive: Soft Skin: Negative: Rash, Suspicious Lesions, Ulceration Extremities: Present: upper extr. pulses, edema (L>R) - Labs and Meds Comprehensive Metabolic Panel 05/17/22 Range/Units 04:52 Sodium 137 (137-145) mmol/L Potassium 3.9 (3.6-5.0) mmol/L Chloride 109.1 H (98-107) mmol/L Carbon Dioxide 22 (22-30) mmol/L BUN 41 H (9-20) mg/dL Creatinine 2.7 H (0.8-1.3) mg/dL Glucose 221 H (75-100) mg/dL Calcium 7.5 L (8.4-10.2) mg/dL - Imaging and Cardiology EKG: report reviewed (Sinus rhythm no acute ST-T wave changes) Echo: report reviewed - Telemetry EKG Rhythm: Sinus Rhythm - EKG Sinus rhythms and dysrhythmias: sinus rhythm
[2022-05-17] MEDS: SODIUM BICARBONATE 650 MG TAB PO SCH ×2 (11:59→22:37)
[2022-05-17] MEDS: FUROSEMIDE 20 MG TAB PO SCH (12:00)
[2022-05-17] MEDS: FAMOTIDINE 10 MG TAB PO SCH ×2 (12:00→22:37)
[2022-05-17] MEDS: carvediloL 25 MG TAB PO SCH ×2 (12:00→22:36)
[2022-05-17] MEDS: HEPARIN 5,000 UNIT/1 ML VIAL SUB-Q SCH ×2 (12:00→22:37)
[2022-05-18] MEDS: SODIUM BICARBONATE 650 MG TAB PO SCH ×4 (07:14→21:39)
--- NOTE | 2022-05-18 07:52 | Progress Note ---
Assessment and Plan - Patient Problems (1) Acute exacerbation of CHF (congestive heart failure) Current Visit: Yes Status: Acute Qualifiers: Heart failure type: unspecified Qualified Code(s): I50.9 - Heart failure, unspecified Plan to address problem: Stable Lasix 20 mg once a day and KCl 8 mg once a day (2) Hyperkalemia Current Visit: Yes Status: Acute Plan to address problem: Treated with Kayexalate and calcium gluconate and bicarbonate (3) ANNA (acute kidney injury) Current Visit: Yes Status: Acute Plan to address problem: Vasomotor nephropathy Possible underlying CKD Nephrology consult Patient on Lasix which may exacerbate volume depletion Creatinine improved to 2.7 and 2.8 and stabilized there Patient has underlying chronic kidney disease (4) T2DM (type 2 diabetes mellitus) Current Visit: Yes Status: Chronic Qualifiers: Diabetes 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 Patient acknowledged understanding with care plan. +30 minutes. Subjective Date of service: 05/17/22 Principal diagnosis: Volume overload, nephrotic syndrome Interval history: History of present illness: 61-year-old male with no significant past medical history comes in for swelling of both the legs and shortness of breath on exertion. No fever or chills. No cough. No night sweats. No joint pains except for right knee swelling and right knee pain. 05/15/2022 Shortness of breath is better Pedal edema is better Creatinine slightly improved creatinine improved from 36/2.5-34/2.3 Echocardiogram showed ejection fraction of 50 to 55% 05/16/2022 Shortness of breath better Cardiology and nephrology follow-up appreciated Creatinine remains the same around 3.4 05/17/2022 BUN and creatinine is improved to 41/2.7 from 3.4 of creatinine Nephrology consult and follow-up appreciated Shortness of breath better -EF 50 to 55%. Mild diastolic dysfunction is present impaired relaxation pattern. Right ventricular systolic function is normal. No pericardial effusion Objective - Constitutional Vitals: Vital Signs - 12hr 05/17/22 05/17/2205/18/22 20:22 22:36 07:32 Pulse Rate 67 Blood Pressure 163/84 O2 Sat by Pulse 98 98 Oximetry General appearance: Present: no acute distress, well-nourished - EENT Eyes: PERRL, EOM intact ENT: hearing intact, clear oral mucosa Ears: bilateral: normal - Neck Neck: supple, normal ROM - Respiratory Respiratory effort: normal Respiratory: bilateral: CTA - Breasts Breasts: normal - Cardiovascular Heart rate: 78 Rhythm: regular Heart Sounds: Present: S1 & S2. Absent: gallop, rub Extremities: pulses intact, No edema, normal color, Full ROM - Gastrointestinal General gastrointestinal: Present: soft, non-tender, non-distended, normal bowel sounds - Genitourinary Male genitourinary: normal - Integumentary Integumentary: clear, warm, dry - Musculoskeletal Musculoskeletal: 1, strength equal bilaterally - Neurologic Neurologic: moves all extremities - Psychiatric Psychiatric: memory intact, appropriate mood/affect, intact judgment & insight - Labs CBC & Chem 7: 05/15/22 05:11 05/19/22 09:22 Labs: Abnormal lab results 05/17/22 05/17/22 05/17/22 Range/Units 08:18 12:12 16:50 POC Glucose 162 H 309 H 277 H (70-105) mg/dL HEART Score - HEART Score Age: 45-65 Risk factors: 1-2 risk factors Troponin: Troponin T < 0.010 ng/mL (0.00-0.029) 05/14/22 11:17 Troponin: < normal limit - Critical Actions Critical Actions: 0-3 pts:0.9-1.7%risk of adverse cardiac event.Candidate for discharge
--- NOTE | 2022-05-18 07:53 | Progress Note ---
Assessment and Plan - Patient Problems (1) Acute exacerbation of CHF (congestive heart failure) Current Visit: Yes Status: Acute Qualifiers: Heart failure type: unspecified Qualified Code(s): I50.9 - Heart failure, unspecified Plan to address problem: Ejection fraction is 50 to 55% Decreased left-ventricular systolic function (2) Hyperkalemia Current Visit: Yes Status: Acute Plan to address problem: Treated with Kayexalate and calcium gluconate and bicarbonate (3) ANNA (acute kidney injury) Current Visit: Yes Status: Acute Plan to address problem: Vasomotor nephropathy Possible underlying CKD Nephrology consult Patient on Lasix which may exacerbate volume depletion (4) T2DM (type 2 diabetes mellitus) Current Visit: Yes Status: Chronic Qualifiers: 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 Patient acknowledged understanding with care plan. +30 minutes. Subjective Date of service: 05/16/22 Principal diagnosis: Volume overload, nephrotic syndrome Interval history: History of present illness: 61-year-old male with no significant past medical history comes in for swelling of both the legs and shortness of breath on exertion. No fever or chills. No cough. No night sweats. No joint pains except for right knee swelling and right knee pain. 05/15/2022 Shortness of breath is better Pedal edema is better Creatinine slightly improved creatinine improved from 36/2.5-34/2.3 Echocardiogram showed ejection fraction of 50 to 55% 05/16/2022 Shortness of breath better Cardiology and nephrology follow-up appreciated Creatinine remains the same around 3.4 Objective - Constitutional Vitals: Vital Signs - 12hr 05/17/22 05/17/22 05/18/22 20:22 22:36 07:32 Pulse Rate 67 Blood Pressure 163/84 O2 Sat by Pulse 98 98 Oximetry General appearance: Present: no acute distress, well-nourished - EENT Eyes: PERRL, EOM intact ENT: hearing intact, clear oral mucosa Ears: bilateral: normal - Neck Neck: supple, normal ROM - Respiratory Respiratory effort: normal Respiratory: bilateral: CTA - Breasts Breasts: normal - Cardiovascular Heart rate: 78 Rhythm: regular Heart Sounds: Present: S1 & S2. Absent: gallop, rub Extremities: pulses intact, No edema, normal color, Full ROM - Gastrointestinal General gastrointestinal: Present: soft, non-tender, non-distended, normal bowel sounds - Genitourinary Male genitourinary: normal - Integumentary Integumentary: clear, warm, dry - Musculoskeletal Musculoskeletal: 1, strength equal bilaterally - Neurologic Neurologic: moves all extremities - Psychiatric Psychiatric: memory intact, appropriate mood/affect, intact judgment & insight - Labs CBC & Chem 7: 05/15/22 05:11 05/19/22 09:22 Labs: Abnormal lab results 05/17/22 05/17/22 05/17/22 Range/Units 08:18 12:12 16:50 POC Glucose 162 H 309 H 277 H (70-105) mg/dL HEART Score - HEART Score Age: 45-65 Risk factors: 1-2 risk factors Troponin: Troponin T < 0.010 ng/mL (0.00-0.029) 05/14/22 11:17 Troponin: < normal limit - Critical Actions Critical Actions: 0-3 pts:0.9-1.7%risk of adverse cardiac event.Candidate for discharge
--- NOTE | 2022-05-18 07:54 | Event Note ---
Date: 05/18/22 We will discharge the patient if cleared by nephrology and follow-up with nephrology and cardiology as outpatient
[2022-05-18] MEDS: FAMOTIDINE 10 MG TAB PO SCH ×2 (09:02→21:30)
[2022-05-18] MEDS: HEPARIN 5,000 UNIT/1 ML VIAL SUB-Q SCH ×2 (09:02→21:30)
[2022-05-18] MEDS: FUROSEMIDE 20 MG TAB PO SCH (09:02)
[2022-05-18] MEDS: carvediloL 25 MG TAB PO SCH ×2 (09:02→21:30)
--- NOTE | 2022-05-18 11:47 | Progress Note ---
Assessment and Plan Acute Kidney injury, Possible CKD Metabolic acidosis Hyperkalemia Acute CHF exacerbation DM2 HTN -Check BMP, if Cr stable on it, then can discharge home to f/u outpatient in renal clinic. -Pt may have underlying CKD -Calculated protein to cr ratio was 14 g, nephrotic range proteinuria, pt has nephrotic syndrome, ordered secondary GN work up -So far HIV, Hepatitis panel -> negative -Renal US suggestive of medical renal disease with trace perinephric fluid noted, no hydronephrosis -On sodium bicarbonate 650 mg po TID for acidosis -On lasix 20 mg po daily -Low K diet -Pt needs strict intake and output Dashawn Gaspar MD [phone] Subjective Date of service: 05/18/22 Principal diagnosis: Volume overload, nephrotic syndrome Interval history: making urine. Objective - Exam Narrative Exam: General appearance: Present: mild distress, well-nourished - EENT Eyes: Present: PERRL ENT: hearing intact, clear oral mucosa - Neck Neck: Present: supple, normal ROM - Respiratory Respiratory effort: normal Respiratory: bilateral: CTA - Cardiovascular Heart rate: 78 Rhythm: regular Heart Sounds: Present: S1 & S2. Absent: rub, click - Extremities Extremities: pulses symmetrical, No edema Peripheral Pulses: within normal limits - Abdominal General gastrointestinal: Present: soft, non-tender, non-distended, normal bowel sounds Male genitourinary: Present: normal - Rectal Rectal Exam: deferred - Integumentary Integumentary: Present: clear, warm, dry - Musculoskeletal Musculoskeletal: gait normal, strength equal bilaterally - Psychiatric Psychiatric: appropriate mood/affect, intact judgment & insight - Neurologic Neurologic: CNII-XII intact, moves all extremities - Vital Signs Vital signs: Vital Signs - 12hr 05/18/22 05/18/22 05/18/22 04:07 07:32 07:46 Temperature 97.9 F 98.9 F Pulse Rate 71 63 Respiratory 18 18 Rate Blood Pressure 138/74 160/79 O2 Sat by Pulse 97 98 96 Oximetry - Lab 05/15/22 05:11 05/17/22 04:52 Most recent lab results Calcium 7.5 mg/dL (8.4-10.2) L 05/17/22 04:52 Magnesium 1.90 mg/dL (1.7-2.3) 05/14/22 11:17 Urine Creatinine 36.2 mg/dL (0.1-20.0) H 05/15/22 18:41 Urine Sodium 104 mmol/L 05/15/22 18:41 Urine Total Protein 510 mg/dL (5-11.8) H 05/15/22 18:41 Medications & Allergies - Medications Allergies/Adverse Reactions: Allergies No Known Allergies Allergy (Verified 05/14/22 16:57) Home Medications: Home Medications Medication Instructions Recorded Confirmed Last Taken Type amLODIPine [Norvasc] 10 mg PO DAILY 05/15/22 05/15/22 Unknown History Active Medications: Generic Name Dose Route Start Last Admin Trade Name Freq PRN Reason Stop Dose Admin Acetaminophen 650 mg 05/14/22 16:47 Acetaminophen 325 Mg Tab PO Q4H PRN Pain MILD(1-3)/Fever >100.5/KEARNS Atorvastatin Calcium 40 mg 05/16/22 22:00 05/17/22 22:37 Atorvastatin 40 Mg Tab PO 40 mg QHS REENA Administration Carvedilol 25 mg 05/16/22 12:00 05/18/22 09:02 Carvedilol 25 Mg Tab PO 25 mg Q12HR REENA Administration Famotidine 10 mg 05/15/22 22:00 05/18/22 09:02 Famotidine 10 Mg Tab PO 10 mg BID REENA Administration Furosemide 20 mg 05/17/22 10:00 05/18/22 09:02 Furosemide 20 Mg Tab PO 20 mg QDAY REENA Administration Heparin Sodium (Porcine) 5,000 unit 05/14/22 22:00 05/18/22 09:02 Heparin 5,000 Unit/1 Ml Vial SUB-Q 5,000 unit Q12HR REENA Administration Hydralazine HCl 10 mg 05/15/22 04:15 05/15/22 04:33 Hydralazine 20 Mg/1 Ml Inj IV 10 mg Q4H PRN Administration Blood Pressure Morphine Sulfate 2 mg 05/14/22 16:54 Morphine 2 Mg/1 Ml Inj IV Q4H PRN Pain, Moderate (4-6) Ondansetron HCl 4 mg 05/14/22 16:47 Ondansetron 4 Mg/2 Ml Inj IV Q8H PRN Nausea And Vomiting Oxycodone/Acetaminophen 1 tab 05/14/22 16:54 Oxycodone /Acetaminophen 5-325mg Tab PO Q6H PRN Pain, Moderate (4-6) Sodium Bicarbonate 650 mg 05/15/22 20:00 05/18/22 09:02 Sodium Bicarbonate 650 Mg Tab PO 650 mg TID REENA Administration Sodium Chloride 10 ml 05/14/22 22:00 05/18/22 09:02 Sodium Chloride 0.9% 10 Ml Flush Syringe IV 10 ml BID REENA Administration Sodium Chloride 10 ml 05/14/22 16:47 Sodium Chloride 0.9% 10 Ml Flush Syringe IV PRN PRN LINE FLUSH
[2022-05-18 14:26] LABS: Calcium 7.6 mg/dL (8.4-10.2)
[2022-05-18] MEDS: hydrALAZINE 20 MG/1 ML INJ IV PRN (17:29)
[2022-05-18] MEDS: INSULIN LISPRO 100 UNIT/ML SUB-Q SCH (21:31)
--- NOTE | 2022-05-18 22:34 | Progress Note ---
Assessment and Plan - Patient Problems (1) Acute exacerbation of CHF (congestive heart failure) Current Visit: No Status: Acute Qualifiers: Heart failure type: unspecified Qualified Code(s): I50.9 - Heart failure, unspecified Plan to address problem: Echocardiogram for ejection fraction and wall motion and valve function I's and O's Daily weights BNP is high 3655 (2) Hyperkalemia Current Visit: No Status: Acute Plan to address problem: Treated with Kayexalate and calcium gluconate and bicarbonate (3) ANNA (acute kidney injury) Current Visit: No Status: Acute Plan to address problem: Vasomotor nephropathy Possible underlying CKD Nephrology consult Patient on Lasix which may exacerbate volume depletion (4) T2DM (type 2 diabetes mellitus) Current Visit: No Status: Chronic Qualifiers: Diabetes mellitus long-term insulin 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 Patient acknowledged understanding with care plan. +30 minutes. Subjective Date of service: 05/18/22 Principal diagnosis: Volume overload, nephrotic syndrome Interval history: History of present illness: 61-year-old male with no significant past medical history comes in for swelling of both the legs and shortness of breath on exertion. No fever or chills. No cough. No night sweats. No joint pains except for right knee swelling and right knee pain. 05/15/2022 Shortness of breath is better Pedal edema is better Creatinine slightly improved creatinine improved from 36/2.5-34/2.3 Echocardiogram showed ejection fraction of 50 to 55% 05/16/2022 Shortness of breath better Cardiology and nephrology follow-up appreciated Creatinine remains the same around 3.4 05/17/2022 BUN and creatinine is improved to 41/2.7 from 3.4 of creatinine Nephrology consult and follow-up appreciated Shortness of breath better -EF 50 to 55%. Mild diastolic dysfunction is present impaired relaxation pattern. Right ventricular systolic function is normal. No pericardial effusion 05/18/2022 Creatinine stable at 2.8 Patient has underlying chronic kidney disease Patient to follow-up with nephrology as outpatient Informed family Discharge tomorrow Objective - Constitutional Vitals: Vital Signs - 12hr 05/18/22 05/18/22 05/18/22 11:40 16:16 19:30 Temperature 97.8 F 97.7 F 98.1 F Pulse Rate 63 63 70 Respiratory 18 18 16 Rate Blood Pressure 171/88 161/83 153/79 O2 Sat by Pulse 99 99 97 Oximetry 05/18/22 21:30 Temperature Pulse Rate 70 Respiratory Rate Blood Pressure 153/79 O2 Sat by Pulse Oximetry General appearance: Present: no acute distress, well-nourished - EENT Eyes: PERRL, EOM intact ENT: hearing intact, clear oral mucosa Ears: bilateral: normal - Neck Neck: supple, normal ROM - Respiratory Respiratory effort: normal Respiratory: bilateral: CTA - Breasts Breasts: normal - Cardiovascular Heart rate: 78 Rhythm: regular Heart Sounds: Present: S1 & S2. Absent: gallop, rub Extremities: pulses intact, No edema, normal color, Full ROM - Gastrointestinal General gastrointestinal: Present: soft, non-tender, non-distended, normal bowel sounds - Genitourinary Male genitourinary: normal - Integumentary Integumentary: clear, warm, dry - Musculoskeletal Musculoskeletal: 1, strength equal bilaterally - Neurologic Neurologic: moves all extremities - Psychiatric Psychiatric: memory intact, appropriate mood/affect, intact judgment & insight - Labs CBC & Chem 7: 05/15/22 05:11 05/19/22 09:22 Labs: Abnormal lab results 05/18/22 05/18/22 Range/Units 13:21 20:06 Sodium 136 L (137-145) mmol/L BUN 39 H (9-20) mg/dL Creatinine 2.8 H (0.8-1.3) mg/dL Glucose 331 H (75-100) mg/dL POC Glucose 245 H (70-105) mg/dL Calcium 7.6 L (8.4-10.2) mg/dL HEART Score - HEART Score Age: 45-65 Risk factors: 1-2 risk factors Troponin: Troponin T < 0.010 ng/mL (0.00-0.029) 05/14/22 11:17 Troponin: < normal limit - Critical Actions Critical Actions: 0-3 pts:0.9-1.7%risk of adverse cardiac event.Candidate for discharge
[2022-05-19] MEDS: INSULIN LISPRO 100 UNIT/ML SUB-Q SCH ×2 (07:36→12:46)
[2022-05-19] MEDS: FUROSEMIDE 20 MG TAB PO SCH (09:11)
[2022-05-19] MEDS: FAMOTIDINE 10 MG TAB PO SCH (09:11)
[2022-05-19] MEDS: SODIUM BICARBONATE 650 MG TAB PO SCH ×3 (09:11→13:00)
[2022-05-19] MEDS: carvediloL 25 MG TAB PO SCH (09:11)
[2022-05-19] MEDS: HEPARIN 5,000 UNIT/1 ML VIAL SUB-Q SCH (09:12)
[2022-05-19 10:25] LABS: Calcium 7.5 mg/dL (8.4-10.2)
[2022-05-19 12:36] VITALS: BP 139/65
--- NOTE | 2022-05-19 14:47 | Progress Note ---
Assessment and Plan Acute Kidney injury, Possible CKD Metabolic acidosis Hyperkalemia Acute CHF exacerbation DM2 HTN -Cr stable, ok to discharge home from renal standpoint to f/u outpatient in renal clinic. -Pt may have underlying CKD -Calculated protein to cr ratio was 14 g, nephrotic range proteinuria, pt has nephrotic syndrome, ordered secondary GN work up -So far HIV, Hepatitis panel -> negative -Renal US suggestive of medical renal disease with trace perinephric fluid noted, no hydronephrosis -On sodium bicarbonate 650 mg po TID for acidosis -On lasix 20 mg po daily -Low K diet -Pt needs strict intake and output Dashawn Gaspar MD [phone] Subjective Date of service: 05/19/22 Principal diagnosis: Volume overload, nephrotic syndrome Interval history: making urine. Objective - Exam Narrative Exam: General appearance: Present: mild distress, well-nourished - EENT Eyes: Present: PERRL ENT: hearing intact, clear oral mucosa - Neck Neck: Present: supple, normal ROM - Respiratory Respiratory effort: normal Respiratory: bilateral: CTA - Cardiovascular Heart rate: 78 Rhythm: regular Heart Sounds: Present: S1 & S2. Absent: rub, click - Extremities Extremities: pulses symmetrical, No edema Peripheral Pulses: within normal limits - Abdominal General gastrointestinal: Present: soft, non-tender, non-distended, normal bowel sounds Male genitourinary: Present: normal - Rectal Rectal Exam: deferred - Integumentary Integumentary: Present: clear, warm, dry - Musculoskeletal Musculoskeletal: gait normal, strength equal bilaterally - Psychiatric Psychiatric: appropriate mood/affect, intact judgment & insight - Neurologic Neurologic: CNII-XII intact, moves all extremities - Vital Signs Vital signs: Vital Signs - 12hr 05/19/22 05/19/22 05/19/22 04:50 07:35 07:42 Temperature 97.9 F 98.5 F Pulse Rate 72 72 Respiratory 16 18 Rate Blood Pressure 157/84 172/85 O2 Sat by Pulse 97 96 98 Oximetry 05/19/22 12:08 Temperature 98.2 F Pulse Rate 68 Respiratory 18 Rate Blood Pressure 139/65 O2 Sat by Pulse 100 Oximetry - Lab 05/15/22 05:11 05/19/22 09:22 Most recent lab results Calcium 7.5 mg/dL (8.4-10.2) L 05/19/22 09:22 Magnesium 1.90 mg/dL (1.7-2.3) 05/14/22 11:17 Urine Creatinine 36.2 mg/dL (0.1-20.0) H 05/15/22 18:41 Urine Sodium 104 mmol/L 05/15/22 18:41 Urine Total Protein 510 mg/dL (5-11.8) H 05/15/22 18:41 Medications & Allergies - Medications Allergies/Adverse Reactions: Allergies No Known Allergies Allergy (Verified 05/14/22 16:57) Home Medications: Home Medications Medication Instructions Recorded Confirmed Last Taken Type amLODIPine [Norvasc] 10 mg PO DAILY 05/15/22 05/15/22 Unknown History Active Medications: Generic Name Dose Route Start Last Admin Trade Name Freq PRN Reason Stop Dose Admin Acetaminophen 650 mg 05/14/22 16:47 Acetaminophen 325 Mg Tab PO Q4H PRN Pain MILD(1-3)/Fever >100.5/KEARNS Atorvastatin Calcium 40 mg 05/16/22 22:00 05/18/22 21:30 Atorvastatin 40 Mg Tab PO 40 mg QHS REENA Administration Carvedilol 25 mg 05/16/22 12:00 05/19/22 09:11 Carvedilol 25 Mg Tab PO 25 mg Q12HR REENA Administration Famotidine 10 mg 05/15/22 22:00 05/19/22 09:11 Famotidine 10 Mg Tab PO 10 mg BID REENA Administration Furosemide 20 mg 05/17/22 10:00 05/19/22 09:11 Furosemide 20 Mg Tab PO 20 mg QDAY REENA Administration Heparin Sodium (Porcine) 5,000 unit 05/14/22 22:00 05/19/22 09:12 Heparin 5,000 Unit/1 Ml Vial SUB-Q 5,000 unit Q12HR REENA Administration Hydralazine HCl 10 mg 05/15/22 04:15 05/18/22 17:29 Hydralazine 20 Mg/1 Ml Inj IV 10 mg Q4H PRN Administration Blood Pressure Insulin Human Lispro 0 unit 05/18/22 22:00 05/19/22 12:46 Insulin Lispro 100 Unit/Ml SUB-Q 4 unit ACHS REENA Administration Protocol Morphine Sulfate 2 mg 05/14/22 16:54 Morphine 2 Mg/1 Ml Inj IV Q4H PRN Pain, Moderate (4-6) Ondansetron HCl 4 mg 05/14/22 16:47 Ondansetron 4 Mg/2 Ml Inj IV Q8H PRN Nausea And Vomiting Oxycodone/Acetaminophen 1 tab 05/14/22 16:54 Oxycodone /Acetaminophen 5-325mg Tab PO Q6H PRN Pain, Moderate (4-6) Sodium Bicarbonate 650 mg 05/15/22 20:00 05/19/22 13:00 Sodium Bicarbonate 650 Mg Tab PO Not Given TID REENA Sodium Chloride 10 ml 05/14/22 22:00 05/19/22 11:23 Sodium Chloride 0.9% 10 Ml Flush Syringe IV Not Given BID REENA Sodium Chloride 10 ml 05/14/22 16:47 Sodium Chloride 0.9% 10 Ml Flush Syringe IV PRN PRN LINE FLUSH
--- NOTE | 2022-05-19 15:27 | Discharge Summary ---
Providers - Providers Date of Admission: 05/14/22 16:47 Date of discharge: 05/19/22 Attending physician: EDDIE MITTAL 05/14/22 16:54 Consult to Physician [CONS] Routine Comment: Consulting Provider: DUTCH MEDINA Physician Instructions: Reason For Exam: CHF 05/15/22 08:18 Consult to Physician [CONS] Routine Comment: Consulting Provider: CURT GUTIERREZ Physician Instructions: Reason For Exam: anna Primary care physician: BILINGUAL MANAGER Hospitalization Condition: Stable Hospital course: Subjective Date of service: 05/18/22 Principal diagnosis: Volume overload, nephrotic syndrome Interval history: History of present illness: 61-year-old male with no significant past medical history comes in for swelling of both the legs and shortness of breath on exertion. No fever or chills. No cough. No night sweats. No joint pains except for right knee swelling and right knee pain. 05/15/2022 Shortness of breath is better Pedal edema is better Creatinine slightly improved creatinine improved from 36/2.5-34/2.3 Echocardiogram showed ejection fraction of 50 to 55% 05/16/2022 Shortness of breath better Cardiology and nephrology follow-up appreciated Creatinine remains the same around 3.4 05/17/2022 BUN and creatinine is improved to 41/2.7 from 3.4 of creatinine Nephrology consult and follow-up appreciated Shortness of breath better -EF 50 to 55%. Mild diastolic dysfunction is present impaired relaxation pattern. Right ventricular systolic function is normal. No pericardial effusion 05/18/2022 Creatinine stable at 2.8 Patient has underlying chronic kidney disease Patient to follow-up with nephrology as outpatient Informed family Discharge tomorrow 05/19/2022 Creatinine stable at 2.8 Patient has underlying chronic kidney disease Patient has mild CHF Patient has T2DM which is reasonable Discussed with nephrology for follow-up as outpatient on regular basis Informed patient and family about the follow-up for nephrology as outpatient Assessment and Plan - Patient Problems (1) Acute exacerbation of CHF (congestive heart failure) Current Visit: No Status: Acute Qualifiers: Heart failure type: unspecified Qualified Code(s): I50.9 - Heart failure, unspecified Plan to address problem: Echocardiogram for ejection fraction and wall motion and valve function I's and O's Daily weights BNP is high 3655 (2) Hyperkalemia Current Visit: No Status: Acute Plan to address problem: Treated with Kayexalate and calcium gluconate and bicarbonate (3) ANNA (acute kidney injury) Current Visit: No Status: Acute Plan to address problem: Vasomotor nephropathy Possible underlying CKD Nephrology consult Patient on Lasix which may exacerbate volume depletion (4) T2DM (type 2 diabetes mellitus) Current Visit: No Status: Chronic Qualifiers: 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 Patient acknowledged understanding with care plan. +30 minutes. Disposition: 01 HOME / SELF CARE / HOMELESS Final Discharge Diagnosis (Prints w/discharge instructions): Acute exacerbation of CHF. Hyperkalemia. ANNA. Chronic kidney disease. 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 care home insulin use status (5) DVT prophylaxis Status: Acute (6) Advance care planning Status: Acute Core Measure Documentation - Palliative Care Palliative Care/ Comfort Measures: Not Applicable - Core Measures Any of the following diagnoses?: none Exam - Constitutional Vitals: Temp Pulse Resp BP Pulse Ox 98.2 F 68 18 139/65 100 05/19/22 12:08 05/19/22 12:08 05/19/22 12:08 05/19/22 12:08 05/19/22 12:08 General appearance: Present: no acute distress, well-nourished - EENT Eyes: Present: PERRL ENT: hearing intact, clear oral mucosa - Neck Neck: Present: supple, normal ROM - Respiratory Respiratory effort: normal Respiratory: bilateral: CTA - Cardiovascular Heart rate: 78 Rhythm: regular Heart Sounds: Present: S1 & S2. Absent: rub, click - Extremities Extremities: pulses symmetrical, No edema Peripheral Pulses: within normal limits - Abdominal General gastrointestinal: Present: soft, non-tender, non-distended, normal bowel sounds Male genitourinary: Present: normal - Integumentary Integumentary: Present: clear, warm, dry - Musculoskeletal Musculoskeletal: gait normal, strength equal bilaterally - Psychiatric Psychiatric: appropriate mood/affect, intact judgment & insight - Neurologic Neurologic: CNII-XII intact, moves all extremities Plan Activity: no restrictions Diet: renal Follow up with: EDITA ROJAS MD [Staff Physician] - 7 Days Prescriptions: amLODIPine 10 mg PO DAILY 30 Days #30 carvediloL [Coreg] 25 mg PO Q12HR 30 Days #60 tablet glipiZIDE [Glipizide ER] 2.5 mg PO QDAY 30 Days #30 Potassium Chloride [K-Dur] 8 meq PO QDAY 60 Days #30 Furosemide [Lasix] 20 mg PO QDAY #30 AtorvaSTATin [Lipitor] 40 mg PO QHS 30 Days #30 tablet Sodium Bicarbonate 650 mg PO TID 30 Days #90 tablet
== END 2022-05-19 16:47 | disposition home or self-care (01) | DRG 291 ==
LOC: EDBD → ED 09:39 → 4A 05-14 16:47
PROVIDERS: ADMIT Internal Medicine; ATTEND Internal Medicine
DX: I13.0 Hypertensive heart and chronic kidney disease with heart failure and stage 1 through stage 4 chronic kidney disease, or unspecified chronic kidney disease (principal); I50.31 Acute diastolic (congestive) heart failure; N17.0 Acute kidney failure with tubular necrosis; J91.8 Pleural effusion in other conditions classified elsewhere; E87.2 Acidosis; N04.9 Nephrotic syndrome with unspecified morphologic changes; E87.5 Hyperkalemia; R91.1 Solitary pulmonary nodule; N18.9 Chronic kidney disease, unspecified; E11.22 Type 2 diabetes mellitus with diabetic chronic kidney disease
CPT/HCPCS: 36415; 71046; 76770; 80048; 80053; 80061; 80074; 81001; 82550; 82570; 82962; 83735; 83880; 84156; 84165; 84166; 84300; 84484; 85025; 86038; 86225; 86334; 86592; 87086; 87806; 89050; 93005; 93306; G0378; Q9967; C8929; J0360; J1644; J1815; J1940

== ENCOUNTER 2022-06-20 13:51 | Outpatient (CLI) | payer OTHER ==
[2022-06-20 14:38] LABS: Basophils # (Auto) 0.2 K/mm3 (0.0-0.1); Basophils % (Auto) 2.5 % (0.0-1.8); Color,Urine Straw (Yellow); Eosinophils # (Auto) 0.2 K/mm3 (0.0-0.4); Eosinophils % (Auto) 3.5 % (0.0-4.3); Hematocrit 34.6 % (35.5-45.6); Hemoglobin 11.4 gm/dl (11.8-15.2); Lymphocytes # (Auto) 2.5 K/mm3 (1.2-5.4); Lymphocytes % (Auto) 40.9 % (13.4-35.0); Mean Corpuscular HGB Conc 33 % (32-34); Mean Corpuscular Volume 90 fl (84-94); Monocytes # (Auto) 0.4 K/mm3 (0.0-0.8); Platelet Count 229 K/mm3 (140-440); Red Blood Count 3.84 M/mm3 (3.65-5.03)
[2022-06-20 14:51] LABS: Creatinine,Urine 43.6 mg/dL (0.1-20.0)
[2022-06-20 15:32] LABS: Protein/Creatinine Ratio,Urine 13.65
[2022-06-20 15:44] LABS: Calcium 7.8 mg/dL (8.4-10.2)
== END 2022-06-20 13:52 | disposition home or self-care (01) ==
LOC: LAB 13:51
PROVIDERS: ATTEND Internal Medicine Nephrology
DX: N18.32 Chronic kidney disease, stage 3b (principal); E87.6 Hypokalemia
CPT/HCPCS: 36415; 80048; 81001; 82570; 83735; 84100; 84156; 85025; 87086